=== PATIENT | female | born 1965 | race Two or more races ===

== ENCOUNTER → 2016-10-17 | Outpatient (CLI) | payer OTHER ==
--- NOTE | 2016-10-17 14:38 | XR ---
Right shoulder HISTORY: Right shoulder pain 3 views of the right shoulder Correlation to prior right shoulder 01/01/2015 There is no interval change. Distal acromion is downturned, there may be a small distal acromial spur . Alignment and bone mineralization, joint spaces are maintained. Right lung apex as visualized shows in the oblique view some questionable increased attenuation. Consider dedicated imaging, chest CT fo r better evaluation. IMPRESSION: Correlate for shoulder impingement, shoulder MRI may be of benefit. Difficult to exclude abnormal increased density in the right upper lobe. Consider chest x-ray, chest CT. Report relayed, v oice message left for the referring clinician.
== END | disposition home or self-care (01) ==
LOC: RADXRMAIN 14:11
PROVIDERS: ATTEND Emergency Medicine
DX: S43.401A Unspecified sprain of right shoulder joint, initial encounter (principal)

== ENCOUNTER → 2016-10-27 | Outpatient (CLI) | payer OTHER ==
--- NOTE | 2016-10-27 19:45 | CT ---
EXAMINATION TYPE: CT chest w con DATE OF EXAM: 10/27/2016 COMPARISON: Right shoulder x-ray from 10 days ago. HISTORY: Possible RUL lung abnormality seen on shoulder x-ray. CT DLP: 709.00 mGycm. Automated Exposure Control for Dose Reduction was Utilized. TECHNIQUE: CT scan of the thorax is performed following with IV Contrast, patient injected with 100 mL of Omnipaque 300. FINDINGS: LUNGS: Multifocal areas of groundglass opacity are seen bilaterally involving predominantly upper nash g muller, 2 larger areas are noted in the left upper lobe on axial image 19, additional areas are see n in the right upper and middle lobes. There is relative sparing of bilateral lower lobes. No focal consolidation is present. No suspicious parenchymal nodule or mass is seen. There is no pleural effus ion or pneumothorax seen bilaterally. The tracheobronchial tree is patent. MEDIASTINUM: There are no greater than 1 cm hilar or mediastinal lymph nodes. There are prominent but subcentimeter paratracheal lymph nodes No cardiomegaly or pericardial effusion is seen. OTHER: Lobulated prominence at pancreatic tail is seen. Visualized liver is diffusely low dense consi stent with fatty infiltration. Debris-filled stomach is seen suggesting recent meal ingestion. Contra cted gallbladder is noted correlating with above. Slight underlying scoliosis is present. IMPRESSION: No suspicious nodule or mass is identified. There is however multifocal groundglass opaci ty involving upper lungs bilaterally, correlate for acute infectious process. Other etiologies not ex cluded. Consider pulmonology referral.
== END | disposition home or self-care (01) ==
LOC: RADCTMAIN 18:55
PROVIDERS: ATTEND Family Medicine
DX: R91.8 Other nonspecific abnormal finding of lung field (principal); R93.6 Abnormal findings on diagnostic imaging of limbs
CPT/HCPCS: 71260; Q9967

== ENCOUNTER → 2017-07-06 | Outpatient (CLI) | payer OTHER ==
[2017-07-06 13:10] LABS: Basophils # (A) 0.1 k/uL (0-0.2); Basophils % (A) 1 %; Eosinophils # (A) 0.1 k/uL (0-0.7); Eosinophils % (A) 2 %; HCT 43.4 % (34.0-46.0); HGB 14.1 gm/dL (11.4-16.0); Lymphocytes # (A) 2.9 k/uL (1.0-4.8); Lymphocytes % (A) 39 %; MCH 29.1 pg (25.0-35.0); MCHC 32.6 g/dL (31.0-37.0); MCV 89.4 fL (80.0-100.0); Mean Platelet Volume 7.4; Monocytes # (A) 0.4 k/uL (0-1.0); Monocytes % (A) 5 %; Neutrophils # (A) 3.8 k/uL (1.3-7.7); Neutrophils % (A) 52 %; Platelet Count 363 k/uL (150-450); RBC 4.86 m/uL (3.80-5.40); RDW 13.8 % (11.5-15.5); WBC 7.4 k/uL (3.8-10.6)
[2017-07-06 13:29] LABS: Potassium 4.5 mmol/L (3.5-5.1)
== END | disposition home or self-care (01) ==
LOC: LABPAT 12:34
PROVIDERS: ATTEND Orthopaedic Surgery
DX: Z01.818 Encounter for other preprocedural examination (principal); G56.01 Carpal tunnel syndrome, right upper limb; Z01.812 Encounter for preprocedural laboratory examination
CPT/HCPCS: 36415; 80051; 85025; 93005

== ENCOUNTER 2017-07-10 07:39 | Day surgery (SDC) | payer OTHER ==
[2017-07-03 14:27] VITALS: BMI 35.5
--- NOTE | 2017-07-09 10:01 | HP ---
HISTORY AND PHYSICAL CHIEF COMPLAINT: Right hand pain and numbness. 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 She is having night symptoms along with weakness. She has tried bracing in addition to medications. She is currently working her regular job. PAST MEDICAL HISTORY: Significant for depression. PAST SURGICAL HISTORY: Negative. CURRENT MEDICATIONS: 1. Prozac. 2. Xanax. 3. Ibuprofen. ALLERGIES: She has sensitivity to CODEINE and allergies to PENICILLIN. FAMILY HISTORY: Significant for heart disease and diabetes along with cancer. SOCIAL HISTORY: Significant for one pack per day tobacco use. REVIEW OF SYSTEMS: Sixteen-point review of systems otherwise reviewed and is noncontributory. PHYSICAL EXAMINATION: On examination, the patient is approximately 5 feet tall, 180 pounds of endomorphic habitus. HEENT exam is nonfocal. Neck is supple. She is nontender about the right shoulder and elbow. On examination of the right wrist, she has a positive Tinel's over the carpal canal. Carpal tunnel compression test is positive. She has mild thenar wasting. Light touch is diminished diffusely in the right thumb. Abductor pollicis brevis strength is 5 minus over 5. EMG report right upper extremity shows median motor latency at the carpal canal 4.6, sensory latency 4.1. IMPRESSION: Right symptomatic carpal tunnel syndrome. RECOMMENDATIONS: I talked to the patient at length regarding her treatment options. At this point, she remains quite symptomatic despite conservative measures. After thorough discussion, she opts to proceed with surgery. We will plan to proceed with right carpal tunnel release. We will likely perform that as an outpatient procedure utilizing local anesthetic and IV sedation. Risks and benefits were discussed at length in layman's terms. MMODL / IJN: [id number] /
[~2017-07-10 07:39] MED LIST: DEXAMETHASONE SOD PHOSPHATE 10 MG/ML 1 ML VIAL IV ONE; HYDROmorphone 0.5 MG/0.5 ML SYRINGE IVP PRN; LACTATED RINGERS 1,000 ML IV SCH; LIDOCAINE 1% 20 ML VIAL (10MG/ML) FOR IV START INTRADERMA PRN; MIDAZOLAM 2 MG/2 ML VIAL IV PRN; MORPHINE SULFATE 2 MG/ML SYRINGE IV PRN; ONDANSETRON 4 MG/2 ML VIAL IVP ONE; SCOPOLAMINE 1.5MG/72HR PATCH TRANSDERM ONE; ceFAZolin IN SWFI 2 GM/20 ML SYRINGE IVP ONE
[2017-07-10 08:13] VITALS: RESP 18; TEMP 98.4
[2017-07-10] MEDS ORDERED: BUPIVACAINE (PF) 0.25% 30 ML VIAL SQ ONE (09:37)
[2017-07-10] MEDS ORDERED: PROPOFOL 10 MG/ML 20 ML VIAL IV ONE (09:40)
[2017-07-10] MEDS ORDERED: LIDOCAINE 1% INJ 10MG/ML (20 ML MDV) ONE (09:40)
[2017-07-10] MEDS ORDERED: MIDAZOLAM 2 MG/2 ML VIAL ONE (09:40)
[2017-07-10] MEDS ORDERED: fentaNYL (PF) 50 MCG/ML 2 ML AMP ONE (09:40)
--- NOTE | 2017-07-10 10:16 | P.OP ---
Date of Procedure: 07/10/17 Preoperative Diagnosis: Right carpal tunnel syndrome Postoperative Diagnosis: Same Procedure(s) Performed: Right carpal tunnel release Anesthesia: MAC, local Surgeon: Melecio Martins Estimated Blood Loss (ml): 2 Pathology: none sent Condition: stable Disposition: PACU Indications for Procedure: The patient's a 52-year-old female who presents with progressive right hand pain and numbness secondary to carpal tunnel syndrome despite conservative measures. A discussion of the risks and benefits of operative intervention versus continued conservative measures was made with the patient. She opted to proceed with surgery. Operative risks to include infection, neurovascular injury, development of blood clots, possible incomplete resolution of symptoms, possible recurrence of symptoms and need for subsequent procedures was discussed. Informed consent was obtained. Operative Findings: As below Description of Procedure: The patient was brought to the operating room, and after induction of IV sedation the right upper extremity was prepped and draped in a normal fashion. The proposed incision site was outlined with a skin marker in line with the radial aspect the fourth ray extending from the volar wrist crease distally 2-1/ 2 cm. 10 mL of quarter percent plain Marcaine was injected into the proposed incision site. The tourniquet was inflated to 250 mmHg. The skin incision was then made. The subcu tissues were divided sharply. Electrocautery was used for hemostasis. The superficial palmar fascia was identified and split in line with the skin incision. The transverse carpal ligament was identified and transected under direct visualization distally to level the palmar fat pad. I felt there was adequate distal release. Proximally it was taken to the level the volar wrist crease. A plane above and below the transverse carpal ligament was then bluntly developed with tenotomies. The confluence of the distal forearm fascia and the transverse carpal ligament was then transected under direct visualization with the tines pointed in the ulnar direction. I felt there was adequate proximal release. Neural lysis was not performed. The wound was then irrigated. The skin was reapproximated with simple 4-0 nylon sutures. A sterile dressing was applied. The tourniquet was deflated less than 20 minutes total tourniquet time. The patient was awoken from sedation and transferred to recovery room in good condition. Blood loss was estimated at 2 mL. No complications were incurred. Sponge and needle counts were correct in the case.
[2017-07-10 10:39] VITALS: BP 128/81; PULSE 64
== END 2017-07-10 11:22 | disposition home or self-care (01) ==
LOC: OR 07:39
PROVIDERS: ATTEND Orthopaedic Surgery
DX: G56.01 Carpal tunnel syndrome, right upper limb (principal); F17.210 Nicotine dependence, cigarettes, uncomplicated; M19.90 Unspecified osteoarthritis, unspecified site; F41.9 Anxiety disorder, unspecified; F32.9 Major depressive disorder, single episode, unspecified; Z79.1 Long term (current) use of non-steroidal anti-inflammatories (NSAID); Z79.899 Other long term (current) drug therapy; Z88.5 Allergy status to narcotic agent; Z88.0 Allergy status to penicillin
CPT/HCPCS: 64721; J2250; J1100; J2405; J2001; J3010; J2704; J0690

== ENCOUNTER 2017-07-22 17:33 | Emergency (ER) | payer OTHER ==
[2017-07-22] MEDS ORDERED: MECLIZINE 12.5 MG TAB PO STA (20:19)
[2017-07-22] MEDS ORDERED: SODIUM CHLORIDE 0.9% 1,000 ML IV STA (20:19)
[2017-07-22 20:20] VITALS: RESP 18; TEMP 99.1
[2017-07-22 20:29] LABS: Basophils % (A) 0 %; Eosinophils # (A) 0.1 k/uL (0-0.7); Eosinophils % (A) 1 %; HCT 41.6 % (34.0-46.0); HGB 14.1 gm/dL (11.4-16.0); Lymphocytes # (A) 1.4 k/uL (1.0-4.8); Lymphocytes % (A) 11 %; MCHC 33.8 g/dL (31.0-37.0); MCV 88.9 fL (80.0-100.0); Mean Platelet Volume 7.6; Monocytes # (A) 0.4 k/uL (0-1.0); Monocytes % (A) 3 %; Neutrophils % (A) 84 %; Platelet Count 331 k/uL (150-450); RBC 4.68 m/uL (3.80-5.40); RDW 13.7 % (11.5-15.5)
--- NOTE | 2017-07-22 20:35 | ED ---
Dizziness HPI - General Chief Complaint: Dizziness Stated Complaint: DIZZINESS, NAUSEA Time Seen by Provider: 07/22/17 20:10 Source: patient Mode of arrival: wheelchair Limitations: no limitations - History of Present Illness Initial Comments: 52-year-old female patient presents to the emergency department today complaining of dizziness. Patient states that the dizziness started around 12: 30 this afternoon. States that whenever she opens her eyes she feels like the room is spinning around her. States it is making her nauseated. Patient states that she does have a history of vertigo and has had dizziness in the past but this is worse than usual. States that she did take an over-the- counter motion sickness pill, it does not seem to be helping. She denies any blurred or double vision with this. Denies any headache, weakness, chest pain, shortness of breath, or abdominal pain. Patient denies any recent rash, fever, chills, diarrhea, constipation, back pain, numbness, tingling, weakness, hematuria, dysuria, urinary urgency, urinary frequency, or any other complaints. - Related Data Home Medications Medication Instructions Recorded Confirmed Acetaminophen Tab [Tylenol] 650 mg PO Q6H PRN 08/22/14 07/03/17 FLUoxetine HCL 40 mg PO PC-LUNCH 07/03/17 07/03/17 Naproxen Sodium 220 mg PO BID 07/03/17 07/03/17 buPROPion HCL [Wellbutrin SR] 150 mg PO PC-LUNCH 07/03/17 07/03/17 Previous Rx's Medication Instructions Recorded Ibuprofen [Motrin] 600 mg PO Q6HR PRN #20 tab 01/02/15 Ibuprofen 800 mg PO Q8HR PRN #30 tablet 07/10/17 Meclizine [Antivert] 25 mg PO TID #15 tab 07/22/17 Ondansetron [Zofran ODT] 4 mg PO Q8HR PRN #10 tab 07/22/17 Allergies Allergy/AdvReac Type Severity Reaction Status Date / Time codeine AdvReac Nausea Verified 07/22/17 18:41 Penicillins AdvReac Nausea Verified 07/22/17 18:41 Review of Systems ROS Statement: Those systems with pertinent positive or pertinent negative responses have been documented in the HPI. ROS Other: All systems not noted in ROS Statement are negative. Past Medical History Past Medical History: No Reported History Additional Past Medical History / Comment(s): ARTHRITIS,vertigo History of Any Multi-Drug Resistant Organisms: None Reported Past Surgical History: Tubal Ligation Additional Past Surgical History / Comment(s): rt hand carpal tunnel Past Anesthesia/Blood Transfusion Reactions: Postoperative Nausea & Vomiting ( PONV) Past Psychological History: Anxiety, Depression Smoking Status: Current every day smoker Past Alcohol Use History: None Reported Past Drug Use History: None Reported - Past Family History Father Family Medical History: Cancer Additional Family Medical History / Comment(s): Father at age 62 from lung cancer. Patient has 2 brothers and 2 sisters with no major medical problems. Patient has 5 daughters with no major medical problems. She also has 2 stepdaughters. Mother Family Medical History: Diabetes Mellitus, Hypertension, Myocardial Infarction ( [place]) Additional Family Medical History / Comment(s): Mother at age 60 from heart failure General Exam Limitations: no limitations General appearance: alert, in no apparent distress, other (This is a well- developed, well-nourished adult female patient in no acute distress. Vital signs upon presentation are temperature 97.1F, pulse 66, respirations 20, blood pressure 158/73, pulse ox 100% on room air.) Eye exam: Present: normal appearance, PERRL, EOMI. Absent: scleral icterus, conjunctival injection, periorbital swelling ENT exam: Present: normal exam, normal oropharynx, mucous membranes moist Respiratory exam: Present: normal lung sounds bilaterally. Absent: respiratory distress, wheezes, rales, rhonchi, stridor Cardiovascular Exam: Present: regular rate, normal rhythm, normal heart sounds. Absent: systolic murmur, diastolic murmur, rubs, gallop, clicks GI/Abdominal exam: Present: soft, normal bowel sounds. Absent: distended, tenderness, guarding, rebound, rigid Neurological exam: Present: alert, oriented X3, CN II-XII intact Expanded Speech: Present: fluid speech Cranial nerves: EOM's Intact: Normal, Nystagmus: Normal Motor strength exam: RUE: 5, LUE: 5, RLE: 5, LLE: 5 Eye Response: (4) open spontaneously Motor Response: (6) obeys commands Verbal Response: (5) oriented Sandy Total: 15 Psychiatric exam: Present: normal affect, normal mood Skin exam: Present: warm, dry, intact, normal color. Absent: rash Course Vital Signs 07/22/17 07/22/17 07/22/17 18:39 20:15 20:17 Temperature 97.1 F L 99.1 F Pulse Rate 66 79 60 Respiratory 20 18 18 Rate Blood Pressure 158/73 153/89 154/70 O2 Sat by Pulse 100 97 98 Oximetry 07/22/17 07/22/17 21:20 22:26 Temperature Pulse Rate 73 60 Respiratory 18 18 Rate Blood Pressure 124/58 137/63 O2 Sat by Pulse 98 99 Oximetry EKG Findings - EKG Comments: EKG Findings:: EKG obtained at 2024 shows normal sinus rhythm with a ventricular rate of 61, CT interval 144, QR jew 96, QTc 446, QTc 448. No evidence of ST elevation or depression. Medical Decision Making - Medical Decision Making 52-year-old female patient presented to the emergency department today for evaluation of dizziness that started earlier today. Physical examination was unremarkable. Patient was neurologically intact. Patient does have a history of vertigo and states some Tums are similar just a little worse. We did give IV fluids and meclizine here in the department. Patient is feeling somewhat better upon reevaluation. She is able to ambulate in the hallway without difficulty. Did give her prescription for meclizine and Zofran for nausea. She is instructed to follow-up with the director of nuclear medicine as soon as possible. She is instructed to return here immediately for any new, worsening, or concerning symptoms. She verbalizes understanding and agrees with this plan. - Lab Data Result diagrams: 07/22/17 19:52 07/22/17 19:52 Lab Results 07/22/17 07/22/17 07/22/17 Range/Units 19:52 19:52 19:52 WBC 13.0 H (3.8-10.6) k/uL RBC 4.68 (3.80-5.40) m/uL Hgb 14.1 (11.4-16.0) gm/dL Hct 41.6 (34.0-46.0) % MCV 88.9 (80.0-100.0) fL MCH 30.0 (25.0-35.0) pg MCHC 33.8 (31.0-37.0) g/dL RDW 13.7 (11.5-15.5) % Plt Count 331 (150-450) k/uL Neutrophils % 84 % Lymphocytes % 11 % Monocytes % 3 % Eosinophils % 1 % Basophils % 0 % Neutrophils # 11.0 H (1.3-7.7) k/uL Lymphocytes # 1.4 (1.0-4.8) k/uL Monocytes # 0.4 (0-1.0) k/uL Eosinophils # 0.1 (0-0.7) k/uL Basophils # 0.0 (0-0.2) k/uL PT (9.0-12.0) sec INR (<1.2) APTT (22.0-30.0) sec Sodium 141 (137-145) mmol/L Potassium 4.6 (3.5-5.1) mmol/L Chloride 103 (98-107) mmol/L Carbon Dioxide 25 (22-30) mmol/L Anion Gap 13 mmol/L BUN 11 (7-17) mg/dL Creatinine 0.60 (0.52-1.04) mg/dL Est GFR (CKD-EPI)AfAm >90 (>60 ml/min/1.73 sqM) Est GFR (CKD-EPI)NonAf >90 (>60 ml/min/1.73 sqM) Glucose 181 H (74-99) mg/dL Calcium 9.6 (8.4-10.2) mg/dL Total Bilirubin 0.4 (0.2-1.3) mg/dL AST 32 (14-36) U/L ALT 67 H (9-52) U/L Alkaline Phosphatase 138 H (38-126) U/L Total Creatine Kinase 50 (30-135) U/L CK-MB (CK-2) 0.3 (0.0-2.4) ng/mL CK-MB (CK-2) Rel Index 0.6 Troponin I <0.012 (0.000-0.034) ng/mL Total Protein 7.1 (6.3-8.2) g/dL Albumin 4.3 (3.5-5.0) g/dL Urine Color Urine Appearance (Clear) Urine pH (5.0-8.0) Ur Specific [place] (1.001-1.035) Urine Protein (Negative) Urine Glucose (UA) (Negative) Urine Ketones (Negative) Urine Blood (Negative) Urine Nitrite (Negative) Urine Bilirubin (Negative) Urine Urobilinogen (<2.0) mg/dL Ur Leukocyte Esterase (Negative) Urine RBC (0-5) /hpf Urine WBC (0-5) /hpf Ur Squamous Epith Cells (0-4) /hpf Amorphous Sediment (None) /hpf Urine Bacteria (None) /hpf Urine Mucus (None) /hpf 07/22/17 07/22/17 Range/Units 19:52 21:23 WBC (3.8-10.6) k/uL RBC (3.80-5.40) m/uL Hgb (11.4-16.0) gm/dL Hct (34.0-46.0) % MCV (80.0-100.0) fL MCH (25.0-35.0) pg MCHC (31.0-37.0) g/dL RDW (11.5-15.5) % Plt Count (150-450) k/uL Neutrophils % % Lymphocytes % % Monocytes % % Eosinophils % % Basophils % % Neutrophils # (1.3-7.7) k/uL Lymphocytes # (1.0-4.8) k/uL Monocytes # (0-1.0) k/uL Eosinophils # (0-0.7) k/uL Basophils # (0-0.2) k/uL PT 9.8 (9.0-12.0) sec INR 1.0 (<1.2) APTT 22.3 (22.0-30.0) sec Sodium (137-145) mmol/L Potassium (3.5-5.1) mmol/L Chloride (98-107) mmol/L Carbon Dioxide (22-30) mmol/L Anion Gap mmol/L BUN (7-17) mg/dL Creatinine (0.52-1.04) mg/dL Est GFR (CKD-EPI)AfAm (>60 ml/min/1.73 sqM) Est GFR (CKD-EPI)NonAf (>60 ml/min/1.73 sqM) Glucose (74-99) mg/dL Calcium (8.4-10.2) mg/dL Total Bilirubin (0.2-1.3) mg/dL AST (14-36) U/L ALT (9-52) U/L Alkaline Phosphatase (38-126) U/L Total Creatine Kinase (30-135) U/L CK-MB (CK-2) (0.0-2.4) ng/mL CK-MB (CK-2) Rel Index Troponin I (0.000-0.034) ng/mL Total Protein (6.3-8.2) g/dL Albumin (3.5-5.0) g/dL Urine Color Light Yellow Urine Appearance Clear (Clear) Urine pH 7.0 (5.0-8.0) Ur Specific [place] 1.009 (1.001-1.035) Urine Protein Negative (Negative) Urine Glucose (UA) Negative (Negative) Urine Ketones Negative (Negative) Urine Blood Trace H (Negative) Urine Nitrite Negative (Negative) Urine Bilirubin Negative (Negative) Urine Urobilinogen <2.0 (<2.0) mg/dL Ur Leukocyte Esterase Negative (Negative) Urine RBC 2 (0-5) /hpf Urine WBC 1 (0-5) /hpf Ur Squamous Epith Cells 1 (0-4) /hpf Amorphous Sediment Rare H (None) /hpf Urine Bacteria Rare H (None) /hpf Urine Mucus Occasional H (None) /hpf Disposition Clinical Impression: Vertigo Disposition: HOME SELF-CARE Condition: Good Instructions: Vertigo (ED), Dizziness (ED) Additional Instructions: Increase fluids. Follow up with Ears, Nose, and Throat physician. Take medications as directed. Return here immediately for any new, worsening, or concerning symptoms. Prescriptions: Meclizine [Antivert] 25 mg PO TID #15 tab Ondansetron [Zofran ODT] 4 mg PO Q8HR PRN #10 tab PRN Reason: Nausea Is patient prescribed a controlled substance at discharge?: No Referrals: Theron Jimenez MD [Primary Care Provider] - 1-2 days Luigi Frias MD [STAFF PHYSICIAN] - 1-2 days Time of Disposition: 22:14
[2017-07-22 20:40] LABS: ALT 67 U/L (9-52); AST 32 U/L (14-36); Albumin 4.3 g/dL (3.5-5.0); Alkaline Phosphatase 138 U/L (38-126); Anion Gap 13 mmol/L; Blood Urea Nitrogen 11 mg/dL (7-17); Calcium 9.6 mg/dL (8.4-10.2); Carbon Dioxide 25 mmol/L (22-30); Chloride 103 mmol/L (98-107); Glucose 181 mg/dL (74-99); Potassium 4.6 mmol/L (3.5-5.1); Sodium 141 mmol/L (137-145); Total Bilirubin 0.4 mg/dL (0.2-1.3); Total Protein 7.1 g/dL (6.3-8.2)
[2017-07-22 20:43] LABS: Creatine Kinase 50 U/L (30-135)
[2017-07-22 20:52] LABS: Partial Thromboplastin Time 22.3 sec (22.0-30.0); Prothrombin Time 9.8 sec (9.0-12.0)
[2017-07-22 20:56] LABS: Creatine Kinase MB 0.3 ng/mL (0.0-2.4); Troponin I <0.012 ng/mL (0.000-0.034)
[2017-07-22 21:35] LABS: Amorphous Sediment,Urine Rare /hpf; Appearance,Urine Clear (Clear); Bacteria,Urine Rare /hpf; Bilirubin,Urine Negative (Negative); Blood,Urine Trace (Negative); Color,Urine Light Yellow; Glucose,Urine (UA) Negative (Negative); Ketones,Urine Negative (Negative); Leukocyte Esterase,Urine Negative (Negative); Mucus,Urine Occasional /hpf; Nitrite,Urine Negative (Negative); Protein,Urine Negative (Negative); RBC,Urine 2 /hpf (0-5); Specific Gravity,Urine 1.009 (1.001-1.035); Squamous Epithelial Cell,Urine 1 /hpf (0-4); Urobilinogen,Urine <2.0 mg/dL (<2.0); WBC,Urine 1 /hpf (0-5)
[2017-07-22] MEDS ORDERED: ONDANSETRON 4 MG/2 ML VIAL IVP STA (22:15)
[2017-07-22 22:28] VITALS: BP 137/63; PULSE 60
== END 2017-07-22 22:32 | disposition home or self-care (01) ==
LOC: EC 17:33
DX: R42 Dizziness and giddiness (principal); R40.2142 Coma scale, eyes open, spontaneous, at arrival to emergency department; R40.2252 Coma scale, best verbal response, oriented, at arrival to emergency department; R40.2362 Coma scale, best motor response, obeys commands, at arrival to emergency department; F32.9 Major depressive disorder, single episode, unspecified; M19.90 Unspecified osteoarthritis, unspecified site; F17.200 Nicotine dependence, unspecified, uncomplicated; Z79.1 Long term (current) use of non-steroidal anti-inflammatories (NSAID); Z79.899 Other long term (current) drug therapy; Z88.0 Allergy status to penicillin; Z88.5 Allergy status to narcotic agent
CPT/HCPCS: 36415; 93005; 80053; 82550; 82553; 84484; 85025; 85610; 85730; 81001; 99284; 96374; 96361; J2405

== ENCOUNTER 2023-08-13 14:58 | Emergency (ER) | payer OTHER ==
--- NOTE | 2023-08-13 16:43 | XR ---
Left ankle HISTORY: Pain following fall. COMPARISON: None. TECHNIQUE: 3 views left ankle were obtained. FINDINGS: There is an oblique nondisplaced fracture of the distal left fibula and moderate soft tissue swelling over the lateral malleolus. The ankle mortise is intact. IMPRESSION: Fracture of the distal fibula with soft tissue swelling as described above.
--- NOTE | 2023-08-13 17:55 | ED ---
Fall HPI - General Chief Complaint: Fall Stated Complaint: IHS-ankle injury Time Seen by Provider: 08/13/23 16:02 Source: patient Mode of arrival: wheelchair - History of Present Illness Initial Comments: 58-year-old female presents to the emergency department reporting left ankle pain. States that she was at work when she tripped over a hose. She had immediate swelling to the left ankle with inability to weight-bear. Injury happened just prior to hospital arrival. She has not taken anything for pain. She denies hitting her head. No loss of consciousness. Denies any knee or hip pain. Patient does not take any blood thinners. No other alleviating, precipitating factors - Related Data Home Medications Medication Instructions Recorded Confirmed Acetaminophen Tab [Tylenol] 650 mg PO Q6H PRN 08/22/14 07/03/17 FLUoxetine HCL 40 mg PO PC-LUNCH 07/03/17 07/03/17 Naproxen Sodium 220 mg PO BID 07/03/17 07/03/17 buPROPion HCL [Wellbutrin SR] 150 mg PO PC-LUNCH 07/03/17 07/03/17 Previous Rx's Medication Instructions Recorded Ibuprofen [Motrin] 600 mg PO Q6HR PRN #20 tab 01/02/15 Ibuprofen 800 mg PO Q8HR PRN #30 tablet 07/10/17 Meclizine [Antivert] 25 mg PO TID #15 tab 07/22/17 Ondansetron [Zofran ODT] 4 mg PO Q8HR PRN #10 tab 07/22/17 Allergies Allergy/AdvReac Type Severity Reaction Status Date / Time codeine AdvReac Nausea Verified 08/13/23 15:43 Penicillins AdvReac Nausea Verified 08/13/23 15:43 Review of Systems ROS Statement: Those systems with pertinent positive or pertinent negative responses have been documented in the HPI. ROS Other: All systems not noted in ROS Statement are negative. Past Medical History Past Medical History: No Reported History Additional Past Medical History / Comment(s): ARTHRITIS,vertigo History of Any Multi-Drug Resistant Organisms: None Reported Past Surgical History: Tubal Ligation Additional Past Surgical History / Comment(s): rt hand carpal tunnel Past Anesthesia/Blood Transfusion Reactions: Postoperative Nausea & Vomiting (PONV) Past Psychological History: Anxiety, Depression Smoking Status: Current every day smoker Past Alcohol Use History: None Reported Past Drug Use History: None Reported - Past Family History Father Family Medical History: Cancer Additional Family Medical History / Comment(s): Father at age 62 from lung cancer. Patient has 2 brothers and 2 sisters with no major medical problems. Patient has 5 daughters with no major medical problems. She also has 2 stepdaughters. Mother Family Medical History: Diabetes Mellitus, Hypertension, Myocardial Infarction ([place]) Additional Family Medical History / Comment(s): Mother at age 60 from heart failure General Exam Limitations: no limitations General appearance: alert, in no apparent distress Head exam: Present: atraumatic, normocephalic, normal inspection Eye exam: Present: normal appearance, PERRL, EOMI. Absent: scleral icterus, conjunctival injection, periorbital swelling ENT exam: Present: normal exam, mucous membranes moist Neck exam: Present: normal inspection. Absent: tenderness, meningismus, lymphadenopathy Respiratory exam: Present: normal lung sounds bilaterally. Absent: respiratory distress, wheezes, rales, rhonchi, stridor Cardiovascular Exam: Present: regular rate, normal rhythm, normal heart sounds. Absent: systolic murmur, diastolic murmur, rubs, gallop, clicks GI/Abdominal exam: Present: soft, normal bowel sounds. Absent: distended, tenderness, guarding, rebound, rigid Extremities exam: Present: tenderness (To palpation of the left lateral ankle. There is significant overlying swelling. 2+ DP and PT pulses. Intact sensation over the medial, lateral and dorsal lower extremity), normal capillary refill. Absent: pedal edema, joint swelling, calf tenderness Back exam: Present: normal inspection Neurological exam: Present: alert, oriented X3, CN II-XII intact Psychiatric exam: Present: normal affect, normal mood Skin exam: Present: warm, dry, intact, normal color. Absent: rash Course Vital Signs 08/13/23 08/13/23 15:41 18:20 Temperature 98.2 F 98.7 F Pulse Rate 61 77 Respiratory 16 18 Rate Blood Pressure 161/84 160/68 O2 Sat by Pulse 99 98 Oximetry Procedures - Orthopedic Splinting/Casting Injury #1 Side: left Lower Extremity Injury Location: long leg Lower Extremity Immobilizer: stirrup splint, synthetic pre-padded splint Other Orthopedic Equipment: crutches Medical Decision Making - Medical Decision Making Was pt. sent in by a medical professional or institution (JESS Krueger, VICE PRESIDENT OF NURSING, urgent care, hospital, or [facility]...) When possible be specific @ -No Did you speak to anyone other than the patient for history (EMS, parent, family, police, friend...)? What history was obtained from this source @ -No Did you review nursing and triage notes (agree or disagree)? Why? @ -I reviewed and agree with nursing and triage notes Were old charts reviewed (outside hosp., previous admission, EMS record, old EKG, old radiological studies, urgent care reports/EKG's, [facility] records)? Report findings @ -No old charts were reviewed Differential Diagnosis (chest pain, altered mental status, abdominal pain women, abdominal pain men, vaginal bleeding, weakness, fever, dyspnea, syncope, headache, dizziness, GI bleed, back pain, seizure, CVA, palpatations, mental health, musculoskeletal)? @ -Differential Musculoskeletal Muscular strain, contusion, ligament sprain, fracture, arthritis, septic arthritis, bursitis, cellulitis, muscle spasm, nerve compression, DVT, arterial occlusion, herpes zoster, electrolyte abnormality, tumor.... This is not meant to be in all inclusive list EKG interpreted by me (3pts min.). @ -Not done X-rays interpreted by me (1pt min.). @ -Yes and demonstrates distal fibula fracture CT interpreted by me (1pt min.). @ -None done U/S interpreted by me (1pt. min.). @ -None done What testing was considered but not performed or refused? (CT, X-rays, U/S, labs)? Why? @ -None What meds were considered but not given or refused? Why? @ -Prescribed pain medications were discussed however patient would prefer to use Motrin and Tylenol for her pain Did you discuss the management of the patient with other professionals (professionals i.e. JESS Krueger, VICE PRESIDENT OF NURSING, lab, RT, psych nurse, social worker psychiatric, industrial relations commissioner, teacher, third officer, director case management)? Give summary @ -No Was smoking cessation discussed for >3mins.? @ -No Was critical care preformed (if so, how long)? @ -No Were there social determinants of health that impacted care today? How? (Homelessness, low income, unemployed, alcoholism, drug addiction, transportation, low edu. Level, literacy, decrease access to med. care, [facility], rehab)? @ -No Was there de-escalation of care discussed even if they declined (Discuss DNR or withdrawal of care, Hospice)? DNR status @ -No What co-morbidities impacted this encounter? (DM, HTN, Smoking, COPD, CAD, Cancer, CVA, ARF, Chemo, Hep., AIDS, mental health diagnosis, sleep apnea, morbid obesity)? @ -None Was patient admitted / discharged? Hospital course, mention meds given and route, prescriptions, significant lab abnormalities, going to OR and other pertinent info. @ -Upon arrival patient was seen and evaluated in room 32. Thorough history and physical exam was performed. Patient is offered pain medications and does agree to Motrin. She would not like anything stronger. She is sent for x-ray w hich demonstrates acute fracture of the left ankle. Patient is placed in a stirrup splint. At this time she is to not weight-bear. She is to rest, ice and elevate the extremity. Follow-up with the orthopedist. Alternate taking Motrin and Tylenol for pain and return if any new or worsening symptoms Undiagnosed new problem with uncertain prognosis? @ -No Drug Therapy requiring intensive monitoring for toxicity (Heparin, Nitro, Insulin, Cardizem)? @ -No Were any procedures done? @ -Stirrup splint left lower extremity Diagnosis/symptom? @ -Acute fall, acute left fibular fracture Acute, or Chronic, or Acute on Chronic? @ -Acute Uncomplicated (without systemic symptoms) or Complicated (systemic symptoms)? @ -Complicated Side effects of treatment? @ -No Exacerbation, Progression, or Severe Exacerbation? @ -No Poses a threat to life or bodily function? How? (Chest pain, [place], [place], pneumonia, PE, COPD, DKA, ARF, appy, cholecystitis, CVA, Diverticulitis, Homicidal, Suicidal, threat to staff... and all critical care pts) @ -No Disposition Clinical Impression: Fall, Left fibular fracture Disposition: HOME SELF-CARE Condition: Stable Instructions (If sedation given, give patient instructions): Leg Fracture (ED) Additional Instructions: Alternate taking Motrin and Tylenol every 4 hours for pain. Do not weight-bear. Use the crutches. Do not get the splint wet. Call and make an appointment with the orthopedic surgeon for further management. Return for any new or worsening symptoms Is patient prescribed a controlled substance at d/c from ED?: No Referrals: Doug Washington MD [Primary Care Provider] - 1-2 days Melvin Garza DO [Doctor of Osteopathic Medicine] - 1-2 days Time of Disposition: 17:54
[2023-08-13 18:48] VITALS: BP 160/68; PULSE 77; RESP 18; TEMP 98.7
== END 2023-08-13 18:20 | disposition home or self-care (01) ==
LOC: EC 14:58
DX: S82.832A Other fracture of upper and lower end of left fibula, initial encounter for closed fracture (principal); F17.200 Nicotine dependence, unspecified, uncomplicated; Z88.5 Allergy status to narcotic agent; Z88.0 Allergy status to penicillin; W18.09XA Striking against other object with subsequent fall, initial encounter; Y99.0 Civilian activity done for income or pay
CPT/HCPCS: 29505; 99283

== ENCOUNTER → 2023-08-27 | Day surgery (SDC) | payer OTHER ==
[~2023-08-27] MED LIST changes: -DEXAMETHASONE SOD PHOSPHATE 10 MG/ML 1 ML VIAL IV ONE; +DEXAMETHASONE SOD PHOSPHATE 4 MG/ML 1 ML VIAL ONE; -HYDROmorphone 0.5 MG/0.5 ML SYRINGE IVP PRN; -LACTATED RINGERS 1,000 ML IV SCH; -LIDOCAINE 1% 20 ML VIAL (10MG/ML) FOR IV START INTRADERMA PRN; +LIDOCAINE 1% INJ 10MG/ML (20 ML MDV) ONE; -MIDAZOLAM 2 MG/2 ML VIAL IV PRN; +MIDAZOLAM 2 MG/2 ML VIAL ONE; -MORPHINE SULFATE 2 MG/ML SYRINGE IV PRN; -ONDANSETRON 4 MG/2 ML VIAL IVP ONE; +PHENYLEPHRINE 10 MG/ML VIAL ONE; +PROPOFOL 10 MG/ML 20 ML VIAL IV ONE; +ROPIVACAINE 5 MG/ML 30 ML VIAL ONE; -SCOPOLAMINE 1.5MG/72HR PATCH TRANSDERM ONE; +SUCCINYLCHOLINE CHLORIDE 200 MG/10 ML VIAL IV ONE; +TRANEXAMIC 1,000 MG/100ML-NACL 1,000 MG in SALINE 1 100ML.BAG IVPB PRN; -ceFAZolin IN SWFI 2 GM/20 ML SYRINGE IVP ONE; +fentaNYL (PF) 50 MCG/ML 2 ML AMP ONE
--- NOTE | 2023-08-27 07:18 | P.HPOR ---
History of Present Illness H&P Date: 08/26/23 Chief Complaint: LEFT ANKLE FRACTURE .T:Title: [facility] Date of :[birth year] [id number]: NKDA Age: 58 year Height: 5' Weight: 180 lbs BP:137/58 BMI: 35.15 kg/m2 Occupation: [employer] VAS: 3 CHIEF COMPLAINT: Left ankle fracture TREATMENTS: Physical Therapy:No Injections:No Brace:Yes; temporary splint How long was brace worn? last 3 to 5 days (current) Home Spine Exercise Program:No Supplements guide:No Health Maintenance Program:No HISTORY: X-Rays:New xrays taken in office Trauma or injury: Yes Work-related: Yes The pain is described as: aching, sharp. Location: Diffuse Hand dominance: Right Activity Modifications:Yes DOI: 08/12/2023 DOS: N/A SUBJECTIVE: Today Ms. Allen presents for re-evaluation of her left ankle fracture. She has been complient with her restrictions and NWB status. Daughter is in the room with her however and states she had another fall and had to brace herself with her ankle. She is in the cast which is CDI at this time without any apparent issues. She states no other problems at this time. The patient's past medical history; past surgical history; family history; medicines; allergies and social history have been reviewed and are as stated elsewhere in the chart. 14 points review of systems completed and as stated in HPI, all other systems reviewed are negative. Social History: Reviewed, see appropriate section of the chart for details. Family History: Reviewed, see appropriate section of the chart for details. P2 Past Medical History: Reviewed, see appropriate section of the chart for details. Current Medications: P1Rx: aspirin 81 mg tablet,delayed release Ref: 0 Rx: Cymbalta Ref: 0 Rx: glipiZIDE Ref: 0 Rx: metFORMIN 500 mg tablet Ref: 0 Rx: SEROquel Ref: 0 Rx: Wellbutrin Ref: 0 P1 PHYSICAL EXAM: Patient is alert and oriented 3 appears well-nourished well-hydrated is in no acute distress. They do not appear septic. There is TTP; lateral left ankle Lower extremities with 5 out of 5 strength in all major muscle groups left ankle limited mobility secondary to fracture as well as strength secondary to fracture. Upper extremities show5/5 strength in all major muscle groups. There is FROM that is painless of the b/l UE and LE in all major joints. They are intact to light touch sensation in L2 to S1 nerve distribution as well as the C5-T1 distribution DTR 2/4 all upper and lower extremities Patient has palpable dorsalis pedis was posterior tibial pulses. Palpable Rad Ulnar pulses b/l Compartments are soft and compressible. Patient shows a negative Homans Cranial nerves II through XII are grossly intact. RADIOGRAPHS: XRay taken on 08/27/23 of te Left Ankle; AP/LAT views, at [facility] was reviewed by Dr. Ornelas and indicates: there has been interval displacement of the left bimalleolar ankle fracture with Burks B distal fibular fracture. There is more medial joint space widening secondary to the Burks B displacement laterally and anteriorly. This is surgical in nature. ASSESSMENT: It was my pleasure to have seen and examined Awa. I reviewed the patient's clinical syndrome, physical findings, and imaging studies during the appointment today. It is my impression that the patient has a diagnosis of. 1.Left ankle Bimalleolar ankle fracture Burks B distal fibular fracture interval displacement 2. s/p fall from standing PLAN: All options were reviewed today, we decided the best course of action would be: - Continue nonweightbearing left lower extremity - follow-up for surgery DISCUSSION: the patient's fracture has displaced since last time we saw each other with increase in angulation as well as lateral displacement as well as medial joint space widening. At this point she needs this fracture fixed with discussed different options for fixation including plate and screws versus minimally invasive Arthrex fibula nail. We will attempt to fibula nail given her healing status and healing potential is decreased due to her diabetes and comorbid conditions. She is on board with this her daughters in the room and agrees. Follow-up: POST OP Patient Education (Informational booklet, instructions, etc) given at today's appointment: Yes .ED:Patient Education: Y Medications Reviewed: yes Attestation: In our visit today Ms. Allen and I have had a chance to go over my understandi ng of the patient's current condition, the natural course history without intervention and various interventional options. Questions were invited and answered, and the patient wishes to proceed as outlined above. I will be sure to keep you updated afterMsRuperto Allen returns here for further follow-up. Thank you again for your referral. Please do not hesitate to contact me if you have any further questions. Signed and authenticated by: Melvin Rivera [facility] [address] [place] [address] This message is confidential, intended only for the named recipient(s) and may contain information that is privileged or exempt from disclosure under applicable law. If you are not the intended recipient(s), you are notified that the dissemination, distribution or copying of this information is strictly prohibited. If you received this message in error, please notify the sender then delete this message. Past Medical History Past Medical History: No Reported History Additional Past Medical History / Comment(s): ARTHRITIS,vertigo History of Any Multi-Drug Resistant Organisms: None Reported Past Surgical History: Tubal Ligation Additional Past Surgical History / Comment(s): rt hand carpal tunnel Past Anesthesia/Blood Transfusion Reactions: Postoperative Nausea & Vomiting (PONV) Past Psychological History: Anxiety, Depression Smoking Status: Current every day smoker Past Alcohol Use History: None Reported Past Drug Use History: None Reported - Past Family History Father Family Medical History: Cancer Additional Family Medical History / Comment(s): Father at age 62 from lung cancer. Patient has 2 brothers and 2 sisters with no major medical problems. Patient has 5 daughters with no major medical problems. She also has 2 stepdaughters. Mother Family Medical History: Diabetes Mellitus, Hypertension, Myocardial Infarction ([place]) Additional Family Medical History / Comment(s): Mother at age 60 from heart failure Medications and Allergies Home Medications Medication Instructions Recorded Confirmed Type Acetaminophen Tab [Tylenol] 650 mg PO Q6H PRN 08/22/14 07/03/17 History Ibuprofen [Motrin] 600 mg PO Q6HR PRN #20 tab 01/02/15 07/03/17 Rx FLUoxetine HCL 40 mg PO PC-LUNCH 07/03/17 07/03/17 History Naproxen Sodium 220 mg PO BID 07/03/17 07/03/17 History buPROPion HCL [Wellbutrin SR] 150 mg PO PC-LUNCH 07/03/17 07/03/17 History Ibuprofen 800 mg PO Q8HR PRN #30 tablet 07/10/17 Rx Meclizine [Antivert] 25 mg PO TID #15 tab 07/22/17 Rx Ondansetron [Zofran ODT] 4 mg PO Q8HR PRN #10 tab 07/22/17 Rx Allergies Allergy/AdvReac Type Severity Reaction Status Date / Time codeine AdvReac Nausea Verified 08/13/23 15:43 Penicillins AdvReac Nausea Verified 08/13/23 15:43 Physical Examination Osteopathic Statement: *. No significant issues noted on an osteopathic structural exam other than those noted in the History and Physical/Consult.
[2023-08-27 10:14] VITALS: RESP 16
[2023-08-27] MEDS: LACTATED RINGERS 1,000 ML IV ONE ×2 (10:23→11:48)
[2023-08-27] MEDS: ONDANSETRON 4 MG/2 ML VIAL IVP PRN (10:35)
[2023-08-27] MEDS: GABAPENTIN 300 MG CAP PO PRN (10:35)
[2023-08-27] MEDS: ACETAMINOPHEN TAB 500 MG TAB PO PRN (10:35)
[2023-08-27 10:36] LABS: Glucose,Whole Blood 122 mg/dL (70-110)
[2023-08-27] MEDS: SCOPOLAMINE 1 MG/72 HR PATCH TRANSDERM ONE (10:36)
[2023-08-27] MEDS: DEXAMETHASONE SOD PHOSPHATE 4 MG/ML 1 ML VIAL IVP ONE (10:36)
[2023-08-27 10:47] LABS: Basophils # (A) 0.1 k/uL (0-0.2); Basophils % (A) 1 %; Eosinophils # (A) 0.2 k/uL (0-0.7); Eosinophils % (A) 3 %; HCT 41.9 % (34.0-46.0); HGB 13.8 gm/dL (11.4-16.0); Lymphocytes % (A) 34 %; MCH 30.1 pg (25.0-35.0); MCHC 32.9 g/dL (31.0-37.0); MCV 91.4 fL (80.0-100.0); Mean Platelet Volume 8.2; Monocytes # (A) 0.4 k/uL (0-1.0); Monocytes % (A) 5 %; Neutrophils # (A) 5.1 k/uL (1.3-7.7); Neutrophils % (A) 57 %; Platelet Count 318 k/uL (150-450); RBC 4.58 m/uL (3.80-5.40); RDW 13.5 % (11.5-15.5); WBC 8.9 k/uL (3.8-10.6)
[2023-08-27 10:55] LABS: ALT 26 U/L (4-34); AST 23 U/L (14-36); African American GFR (CKD) >90 (>60 ml/min/1.73 sqM); Albumin 4.1 g/dL (3.5-5.0); Alkaline Phosphatase 123 U/L (38-126); Anion Gap 5 mmol/L; Blood Urea Nitrogen 13 mg/dL (7-17); Calcium 9.2 mg/dL (8.4-10.2); Carbon Dioxide 27 mmol/L (22-30); Chloride 109 mmol/L (98-107); Glucose 119 mg/dL (74-99); Non-African American GFR(CKD) >90 (>60 ml/min/1.73 sqM); Potassium 4.4 mmol/L (3.5-5.1); Sodium 141 mmol/L (137-145); Total Bilirubin 0.5 mg/dL (0.2-1.3); Total Protein 6.9 g/dL (6.3-8.2)
[2023-08-27] MEDS: MIDAZOLAM 2 MG/2 ML VIAL IVP ONE (10:59)
[2023-08-27 11:12] VITALS: BMI 35.7
--- NOTE | 2023-08-27 12:13 | P.OP ---
Date of Procedure: 08/27/23 Preoperative Diagnosis: 1. Left ankle bimalleolar fracture Postoperative Diagnosis: 1. Left ankle bimalleolar fracture Procedure(s) Performed: 1. Left ankle bimalleolar fracture ORIF 2. Short leg splint application Implants: Arthrex should view lock nail 30 by 1:30 millimeter with 2 distal locking screws and 1 syndesmotic screw Anesthesia: MAC, regional Surgeon: Melvin Garza Acquisition Analyst #1: Josh Farrell (JESS Mensah Was present and assisted with all aspects of the case from positioning to dressing placement) Estimated Blood Loss (ml): 20 IV fluids (ml): 1,100 Urine output (ml): 0 Pathology: none sent Condition: stable Disposition: PACU Indications for Procedure: 58-year-old female presents for left ankle bimalleolar fracture. After slip and fall. She was seen in the office healing with her Previous ankle fracture on the right-hand side. She she was treated in a cast for a week but there is interval displacement of her ankle along with medial clear space widening and so we discussed surgical fixation and she agreed. Risks and benefits of surgery were discussed including risks of bleeding infection damage to tissue risk of reoperation risk of anesthesia up to and including as well as risks and all the risks of surgery. She is Willing to proceed with surgery. Description of Procedure: The patient was seen and examined in the preoperative area. All preoperative protocols were followed. Informed consent was obtained risks and benefits of the procedure were discussed at length. Risks including bleeding infection damage to the surrounding tissue and risk of reoperation were discussed with the patient. Risk of anesthesia up to and including was a discussed with the patient. These are outlined in the risk reviewed. They were willing to accept these risks and all of the risks of surgery. The patient was given a weight- based dose of antibiotics in the form of 2 g Ancef. The patient was seen and evaluated by the anesthesia team who deemed them fit for surgery. The site was marked, the patient was willing to proceed with the procedure. The patient was transferred to the operative suite by the Department of anesthesia. There were then drifted off to sleep by the department of anesthesia andMack with regional anesthesia anesthesia was used. Once adequate anesthesia had been obtained the patient was carefully transferred to the operative bed. All bony prominences were padded accordingly. SCDs were placed on the nonoperative lower extremities. Arms were well padded. Left leg was exposed placed on a bone foam ramp with a left hip bump. Tourniquet was placed on the left upper thigh 10:15 was placed around this. Preoperative briefing was done with the operative team and everyone was ready for the procedure to start. The patients Left leg was then prepped and draped in the normal sterile fashion. Timeout was then performed and all parties in agreement with the procedure to be performed. X-rays used to localize a starting point for pin placement distally on the fibular notch. Fracture was held reduced position. A skin osman was made in the wire was placed optimally in AP and lateral imaging. Wire was then advanced past the fracture into the proximal area of the fibula. Once the wires in place opening reamer was placed over this under fluoroscopic guidance. This is followed by the proximal reamer which was placed under fluoroscopic guidance. Fracture was held reduced in this position during this time. The nail was then selected and placed impacted into position under AP and lateral fluoroscopic guidance. The proximal tines were then deployed in the had good bite. We then placed 2 distal screws through the nail using the jig these were placed unicortical. We then tested the syndesmosis and there was questionable stability of this on top of needing further fixation of the fibular region we then elected to place one syndesmotic screw in the proximal syndesmotic hole. The screw was placed optimally and had excellent bite which also reduced the medial clear space. Once this was all in position AP and lateral fluoroscopic images were taken which showedGood reduction of fracture and good placement of hardware. The wounds were then copiously irrigated with normal sterile saline. The wounds were then closed with 2-0 Vicryl in the subcu tissue followed by 2-0 nylon in the skin. Skin edges approximated very well. Wound was then cleaned and dressed sterilely with a jumpstart dressing followed by 4 x 4's ABDs and web roll. Place was the patient was then placed in a well molded well-padded AO splint short leg on the left lower extremity. This was then overwrapped with an Tony wrap. The patient was then transferred back to their hospital bed. There were awakened by department of anesthesia having tolerated the procedure very well with no complications. The patient was then transported to the postoperative care unit in stable condition.
--- NOTE | 2023-08-27 12:34 | XR ---
EXAMINATION TYPE: XR ankle limited LT, FL guidance operating room Intraoperative/procedural fluorosco pic services were provided. Total fluoroscopy time is not reported seconds with a total of not repor keyona submitted images to PACS. Please see the operative/procedural note for further details. DAP: not reported mGym2 Gycm2 uGym2 cGycm2
[2023-08-27 12:55] LABS: Glucose,Whole Blood 143 mg/dL (70-110)
[2023-08-27 14:08] VITALS: TEMP 97
[2023-08-27 15:05] VITALS: BP 133/63; PULSE 74
--- NOTE | 2023-08-27 20:40 | P.ANPRN ---
Procedure Note - Anesthesia - Nerve Block Performed Left Popliteal Single Time Out Performed: Yes Date of Procedure: 08/27/23 Procedure Start Time: 10:58 Procedure Stop Time: 11:02 Location of Patient: PreOp Indication: Acute Post-Operative Pain, Requested by Surgeon Sedation Type: Sedate with meaningful contact maintained Preparation: Sterile Prep Position: Right Lateral Needle Types: Pajunk Needle Gauge: 21 Ultrasound used to visualize needle placement: Yes Ultrasound used to observe medication spread: Yes Blood Aspirated: No Pain Paresthesia on Injection Noted: No Resistance on Injection: Normal Image Stored and Saved: Yes Events: Uneventful and Well Tolerated (Ropivacaine 0.5% 20 cc plus dexamethasone 4 mg)
--- NOTE | 2023-08-27 20:41 | P.ANPRN ---
Procedure Note - Anesthesia - Nerve Block Performed Left Adductor Canal Single Time Out Performed: Yes Date of Procedure: 08/27/23 Procedure Start Time: 11:03 Procedure Stop Time: 11:08 Location of Patient: PreOp Indication: Acute Post-Operative Pain, Requested by Surgeon Sedation Type: Sedate with meaningful contact maintained Preparation: Sterile Prep Position: Supine Needle Types: Pajunk Needle Gauge: 21 Ultrasound used to visualize needle placement: Yes Ultrasound used to observe medication spread: Yes Blood Aspirated: No Pain Paresthesia on Injection Noted: No Resistance on Injection: Normal Image Stored and Saved: Yes Events: Uneventful and Well Tolerated (Ropivacaine 0.5% 20 cc plus dexamethasone 4 mg)
== END | disposition home or self-care (01) ==
LOC: OR 08:56
PROVIDERS: ATTEND Orthopaedic Surgery
DX: S82.842A Displaced bimalleolar fracture of left lower leg, initial encounter for closed fracture (principal); F41.9 Anxiety disorder, unspecified; G89.18 Other acute postprocedural pain; F17.200 Nicotine dependence, unspecified, uncomplicated; Z88.0 Allergy status to penicillin; Z88.5 Allergy status to narcotic agent; Z79.899 Other long term (current) drug therapy; W01.0XXA Fall on same level from slipping, tripping and stumbling without subsequent striking against object, initial encounter
CPT/HCPCS: 64999; 64445; 80053; 85025; 73600; 27814; C1713; J2250; J0330; J1100; J0690; J2405; J2001; J3010; J2795; J2704; J2371